=== PATIENT | female | born 1985 | race Caucasian/White ===

== ENCOUNTER → 2017-05-28 | Outpatient (CLI) | payer OTHER ==
--- NOTE | 2017-05-29 13:09 | RAD ---
EXAM DESCRIPTION: Foot,Left 3 Views CLINICAL HISTORY: 31 years Female, PAIN IN LEFT FOOT COMPARISON: None. FINDINGS: 3 views of the left foot show no acute fracture or malalignment. The joint spaces are well-maintained. No radiopaque foreign body or soft tissue gas. Seen only on the lateral view is subtle linear lucency involving the tip of the fifth metatarsal base. There is no overlying soft tissue swelling and the lucency is not seen on the AP or oblique views. IMPRESSION: Subtle cortical lucency involving the tip of the fifth metatarsal base, seen only on the lateral view. Considering lack of overlying soft tissue swelling, I believe this is probably not acute. If the patient has point tenderness at this location, the possibility of a tiny nondisplaced avulsion type fracture should also be considered. Otherwise unremarkable exam. Electronically signed by: Paul Ch MD 05/29/2017 1:07 PM CDT
== END ==
LOC: RAD 09:41
PROVIDERS: ATTEND Orthopaedic Surgery
DX: M79.672 Pain in left foot (principal)